=== PATIENT | female | born 1940 | race Caucasian/White ===

== ENCOUNTER → 2016-05-02 | Day surgery (SDC) | payer MEDICARE, OTHER ==
--- NOTE | 2016-05-01 16:23 | MH ---
cc: Savannah PATINO DATE OF ADMISSION: 05/02/2016 ADMISSION DIAGNOSIS Colles fracture left wrist, now for surgical correction. ADMISSION HISTORY AND PHYSICAL A 76-year-old female seen today, is being admitted today for a fracture of her left wrist after she dropped a 50 pound suitcase on it this past weekend. OTHER PAST HISTORY/MEDICATIONS The patient has a history of hypertension and takes atenolol and amlodipine for it. PAST SURGICAL HISTORY No surgeries in the past. REVIEW OF SYSTEMS Noncontributory. FAMILY HISTORY Noncontributory. SOCIAL HISTORY She does not smoke. Drinks some alcohol. ALLERGIES NO KNOWN ALLERGIES. She had a bone density last year which appears to have some osteopenia. PHYSICAL EXAMINATION GENERAL: We find a 76-year-old female, well-developed, well-nourished, oriented x3, complaining of pain in her left wrist and some tingling to her fingers. VITAL SIGNS: Blood pressure 130/79, pulse 92 and regular, respirations 20, temperature 98.1, pulse oximetry 96% on room air. HEENT: Eyes: Pupils equal, round, reactive to light and accommodation. Extraocular movements intact. Ears, nose, mouth: Clear. NECK: Supple. LUNGS: Clear. HEART: Regular rate. ABDOMEN: Soft, positive bowel sounds, nontender. EXTREMITIES: Extremities reveal the left wrist to be diffusely swollen and some paresthesias in the tips of her thumb, index and long finger on her left nondominant wrist hand. IMPRESSION Impression at this time is a comminuted, displaced, shortened fracture angulated of the left distal radius interarticular and closed. PLAN The plan is for admission for open reduction, internal fixation of left wrist fracture with plate and screws and possible carpal tunnel release left wrist today. The patient understands the procedure well and was given a prescription for postoperative pain control in the office. MD KAI Mckeon/YVONNE /3:36 PM /4:07 PM
[~2016-05-02] VITALS: Ht 172.7 cm; Wt 73.1 kg
[~2016-05-02] MED LIST: *morphine SULFATE 8 MG/ML PERIprocedure ONLY ONE; ACETAMINOPHEN 1000 MG/100 ML VIAL IV ONE; ACETAMINOPHEN/HYDROcodone 325 MG/5 MG TAB PO PRN; AMLO5TAB2 PO; ATEN25TA PO; BUPIVACAINE HCL PF 0.25% 30 ML VIAL INFIL ONE; CHLORHEXIDINE GLUCONATE 4% SOLN 120 ML BTL TOP SCH; DEXAMETHASONE SOD PHOS 4 MG/ML VIAL ONE; DO NOT ADM ANY ANTICOAGULANT DRUGS XX PRN; FAMOTIDINE 20 MG/2 ML VIAL ONE; INSULIN HUMAN REGULAR 1,000 UNITS/10 ML VIAL SQ PRN; LACTATED RINGER'S 1000 ML INJ 1,000 ML IV ONE; LACTATED RINGER'S 1000 ML IV SCH; MEPERIDINE HCL 50 MG/ML VIAL IM PRN; METOPROLOL TARTRATE 25 MG TAB PO PRN; MIDAZOLAM HCL 2 MG/2 ML VIAL ONE; NEOMYCIN/POLYMYXIN 1 ML G.U. IRRIGANT XX ONE; ONDANSETRON HCL 4 MG/2 ML VIAL IV PUSH ONE; ONDANSETRON ODT 4 MG TAB PO PRN; PHENYLEPH/NS 1000 MCG/10 ML SYR IV ONE; PROPOFOL 200 MG/20 ML AMP IV ONE; SODIUM CHLORID 0.9% 500 ML IV SCH; ceFAZolin 2 GM PREMIX 50 ML IV SCH; ePHEDrine/NS 50 MG/5 ML SYR IV ONE; fentaNYL CITRATE 250 MCG/5 ML AMP ONE
[2016-05-02 08:50] VITALS: BP 117/72; PULSE 90; RESP 18; TEMP 97.8; O2SAT 97
[2016-05-02 09:52] LABS: AUTOMATED NEUTROPHIL # 2.3 TH/MM3 (1.8-7.7); BASOPHIL # 0.1 TH/MM3 (0-0.2); BASOPHIL % 1.3 % (0.0-2.0); EOSINOPHIL # 0.3 TH/MM3 (0-0.4); EOSINOPHIL % 5.6 % (0.0-4.0); HEMATOCRIT 40.8 % (35.0-46.0); HEMO FLAGS DIFF FINAL; LYMPH % 42.5 % (9.0-44.0); LYMPHOCYTE # 2.2 TH/MM3 (1.0-4.8); MEAN CELL VOLUME 92.1 FL (80.0-100.0); MEAN CORPUSCULAR HEMOGLOBIN 30.7 PG (27.0-34.0); MEAN CORPUSCULAR HGB CONC 33.3 % (32.0-36.0); MONO % 7.5 % (0.0-8.0); NEUT % 43.1 % (16.0-70.0); PLATELET COUNT 235 TH/MM3 (150-450); RED BLOOD COUNT 4.43 MIL/MM3 (4.00-5.30); RED CELL DISTRIBUTION WIDTH 13.1 % (11.6-17.2); WHITE BLOOD COUNT 5.2 TH/MM3 (4.0-11.0)
[2016-05-02 09:59] LABS: APTT (PATIENT) 26.7 SEC (24.3-30.1); INTERNATIONAL NORMALIZED RATIO 0.9 RATIO; PROTHROMBIN TIME - PATIENT 10.1 SEC (9.8-11.6)
[2016-05-02 10:10] LABS: ALT (GPT) 55 U/L (10-53); ANION GAP 7 MEQ/L (5-15); AST (GOT) 35 U/L (15-37); BICARBONATE 24.4 MEQ/L (21.0-32.0); BLOOD UREA NITROGEN 22 MG/DL (7-18); CHLORIDE 107 MEQ/L (98-107); GLOMERULAR FILTRATION RATE 49 ML/MIN (>89); POTASSIUM 4.2 MEQ/L (3.5-5.1); SODIUM (NA) 138 MEQ/L (136-145)
[2016-05-02 10:12] LABS: ALKALINE PHOSPHATASE 102 U/L (45-117); TOTAL BILIRUBIN ADULT 0.5 MG/DL (0.2-1.0)
--- NOTE | 2016-05-02 14:24 | RADRPT ---
EXAM DATE/TIME: 05/02/2016 13:12 [facility] COMPARISON: No previous studies available for comparison. INDICATIONS : ORIF of the left wrist. MEDICAL HISTORY : Unobtainable. SURGICAL HISTORY : Unobtainable. ENCOUNTER: Initial ACUITY: 1 day PAIN SCORE: Non-responsive. LOCATION: Left wrist. FINDINGS: Hardware is noted within the left distal radius status-post ORIF. The fracture fragments are well al igned. CONCLUSION: Status-post ORIF of left distal radial fracture with hardware in good position. Kenny Perea MD on May 02, 2016 at 14:08 Board Certified Radiologist. This report was verified electronically.
[2016-05-02 16:24] VITALS: BP 135/78; PULSE 102; RESP 18; TEMP 96.9; O2SAT 97
--- NOTE | 2016-05-02 19:29 | EKG ---
Date Performed: 05/02/2016 Time Performed: 09:58:31 PTAGE: 76 years EKG: Sinus rhythm NORMAL ECG NO PREVIOUS TRACING DOCTOR: Stan Walker Interpretating Date/Time 05/02/2016 19:27:41
--- NOTE | 2016-05-03 11:40 | MP ---
cc: Savannah PATINO DATE OF SURGERY 05/02/2016 PREOPERATIVE DIAGNOSIS Displaced comminuted intra-articular closed fracture left distal radius and carpal tunnel syndrome left forearm. POSTOPERATIVE DIAGNOSIS Displaced comminuted intra-articular closed fracture left distal radius and carpal tunnel syndrome left forearm. SURGERY PERFORMED Open reduction internal fixation of the left distal radius fracture with Synthes plate and screws and carpal tunnel release left forearm and hand. SURGEON Dr. Patino SLEEP MANAGER RAÚL Huitron and medical student Aggie Kline, third year medical student ANESTHESIA LMA PROCEDURE FOLLOWS The patient brought to the operating room where after successful induction of general anesthesia, the patient's left forearm and hand were prepped and draped in the usual manner. The patient was in the supine position. The tourniquet was inflated about the left upper arm set to 250 mmHg and a volar incision was first made over the distal radius staying ulnar to the radial artery and flexor carpi radialis 3 inches in length with the distal end being just proximal to the distal crease wrist crease. Incision carried down through subcutaneous tissue and fascia to the pronator which was removed with a periosteal elevator off from the distal radius to expose the distal radius and the fracture. Some comminution of the fracture identified. The fracture reduced, held reduced while a Synthes distal radius locking plate was applied first by inserting a screw through a drill hole through the center hole which was a sliding hole to hold the plate in place while C-arm was used to determine the proper area of fixation. The plate was then tightened and the distal six holes filled with the appropriate length locking screws and the two most proximal screws filled with the appropriate length locking screws as well. The sliding screw hole was filled with a 2.7 cortical screw. All screws were tightened. The guide removed. Full range of motion of the wrist was appreciated with no instability and AP and lateral oblique views revealed excellent reduction of the fracture of distal radius with plate and screws firmly fixed to the bone. Next, a carpal tunnel release was performed by making a separate incision through the proximal thenar crease 1 inch in length, carried down through the subcutaneous tissue through the tensor transverse carpal ligament to expose the median nerve which was found to be compressed. The transverse carpal ligament was incised the entire length to fully allow decompression of the median nerve. The tourniquet was deflated with a total tourniquet time being 46 minutes at 250 mmHg pressure. 10 cc of 0.25% Marcaine plain was instilled around the hand and wrist incision for extra pain control. Meticulous hemostasis achieved. The subcutaneous tissue approximated using interrupted 3-0 Monocryl suture and Steri-Strips and sterile dressing applied followed by a sugar-tong splint holding the wrist in slight extension. She remained vascularly intact throughout the entire end of the procedure. ESTIMATED BLOOD LOSS 10 cc. COUNTS The sponge and suture counts were correct. The patient tolerated the procedure well and left the operating room in satisfactory condition. J. MD KAI Staley/MIKAEL /1:35 PM /11:29 AM
== END | disposition home or self-care (01) ==
LOC: HSDC 07:54
PROVIDERS: ATTEND Surgery
DX: S52.532A Colles' fracture of left radius, initial encounter for closed fracture (principal); G56.02 Carpal tunnel syndrome, left upper limb; I10 Essential (primary) hypertension; W22.8XXA Striking against or struck by other objects, initial encounter
CPT/HCPCS: 01810; 25607; 64721; 73100; 76000; 80053; 85025; 85610; 85730; 93005; C1713; J0131; J0690; J1100; J2250; J2270; J2370; J2405; J3010; J7120